=== PATIENT | female | born 1970 | race Caucasian/White ===

== ENCOUNTER 2019-01-28 15:10 | Observation (INO) ==
[~2019-01-28 15:10] MED LIST: Ondansetron 4 MG/2 ML VIAL IVP PRN
[2019-01-28] MEDS ORDERED: 0.9 % Sodium Chloride 1,000 ML IVC ONE (15:58)
[2019-01-28] MEDS ORDERED: Ondansetron 4 MG/2 ML VIAL IVP ONE (15:58)
[2019-01-28] MEDS ORDERED: Morphine Sulfate 2 MG/ML SYRINGE IVP ONE (15:58)
[2019-01-28 16:08] LABS: Bilirubin,Urine Negative (Negative); Blood,Urine Large (Negative); Clarity,Urine Clear (Clear); Color,Urine Yellow (Yellow); Glucose,Urine (UA) >=1000 mg/dL (Normal); Ketones,Urine 40 mg/dL (Negative); Leukocyte Esterase,Urine Negative (Negative); Nitrite,Urine Positive (Negative); Protein,Urine 30 mg/dL (Neg-Trace); Specific Gravity,Urine 1.025 (1.010-1.025); Urobilinogen,Urine Normal (Normal)
[2019-01-28 16:10] LABS: Bacteria,Urine Many per hpf (None-Few); Hyaline Casts,Urine None Seen per lpf (None-Few)
[2019-01-28 16:20] LABS: Squamous Epithelial Cell,Urine Few per lpf (None-Few)
[2019-01-28 16:21] LABS: RBC,Urine 15-30 per hpf (0-3)
[2019-01-28 16:45] LABS: Basophils % 0.3 %; Eosinophils % 0.1 %; Hematocrit 36.6 % (35.3-44.9); Hemoglobin 12.1 g/dL (11.5-15.4); Immature Granulocytes % 0.2 % (0-4); Mean Corpuscular HGB Conc 33.1 g/dL (31.6-35.5); Mean Corpuscular Hemoglobin 30.5 pg (28.0-33.3); Mean Corpuscular Volume 92.2 fL (83.0-100.0); Mean Platelet Volume 10.6 fL (9.4-12.4); Monocytes # 0.2 K/mcL (0.0-1.3); Monocytes % 2.4 %; Platelet Count 205 K/mcL (140-400); Red Blood Count 3.97 M/mcL (3.82-4.97); Red Cell Distribution Width 13.6 % (11.5-14.5); White Blood Count 9.3 K/mcL (4.3-11.1)
[2019-01-28 16:53] LABS: VBG HCO3 25 mEq/L (21-27); VBG PCO2 36 mmHg (41-51); VBG PH 7.46 pH Units (7.32-7.42); VBG PO2 134 mmHg (25-50)
[2019-01-28 17:08] LABS: Alanine Aminotransferase 85 Units/L (7-52); Albumin 4.4 g/dL (3.5-5.7); Albumin/Globulin Ratio 1.6 (1.1-2.2); Alkaline Phosphatase 99 Units/L (34-104); Aspartate Amino Transferase 50 Units/L (13-39); Bilirubin,Total 0.7 mg/dL (0.3-1.0); Blood Urea Nitrogen 25 mg/dL (6-20); Calcium 9.4 mg/dL (8.6-10.3); Carbon Dioxide 26 mEq/L (23-29); Chloride 101 mEq/L (98-107); Globulin 2.7 g/dL (2.4-3.5); Glucose 209 mg/dL (70-105); Lipase 7 Units/L (11-82); Osmolality,Calculated 299 (280-300); Potassium 3.6 mEq/L (3.5-5.1); Sodium 139 mEq/L (136-145); Total Protein 7.1 g/dL (6.4-8.9)
[2019-01-28 17:09] LABS: BUN/Creatinine Ratio 33 (6-26); eGFR For African Americans > 60 (> 60); eGFR For Non-African Americans > 60 (> 60)
[2019-01-28] MEDS ORDERED: cefTRIAXone 1,000 MG in 0.9 % Sodium Chloride Mini Bag 100 ML IVPB ONE (17:51)
--- NOTE | 2019-01-28 18:31 | Emergency Department Note ---
Disposition Clinical Impression: Renal colic on right side, Pyelonephritis Disposition: Admitted As Inpatient Condition: Fair Time of Disposition: 20:20 Abdominal Pain HPI - General Chief Complaint: ED Abdominal Pain Stated Complaint: ABD Pain,Nausea Time Seen by Provider: 01/28/19 15:43 Source: patient Nursing Notes Reviewed: Yes Vital Signs Reviewed: Yes - History of Present Illness HPI Narrative: This is a 48-year-old female presents with a complaint of right right flank pain for the past 2-3 days. Patient states the symptoms got worse today. Pain radiates to her groin. Associated symptoms nausea but no vomiting. She denies any fever or chills. She also describes urinary frequency, urgency and dysuria. Patient has history of insulin-dependent diabetes. Symptoms are worse with urination and palpation. Pt Subjective Complaint: flank pain Onset (ago): day(s) Consistency: constant Location: R flank Pain Scale: 5 Quality: stabbing, sharp Radiation: R flank Migration to: suprapubic Associated symptoms: Reports: nausea. Denies: vomiting, diarrhea - Related Data Home Medications Medication Instructions Recorded Confirmed Aripiprazole [Abilify] 15 mg PO DAILY 01/01/19 01/28/19 Ascorbic Acid [Vitamin C] 1,000 mg PO DAILY 01/01/19 01/28/19 Calcium Carbonate/Vitamin D3 1 cap PO DAILY 01/01/19 01/28/19 [Calcium 600+D Softgel] Oxybutynin [Ditropan] 5 mg PO BID 01/01/19 01/28/19 Rosuvastatin [Crestor] 40 mg PO HS 01/01/19 01/28/19 Subcutaneous Insulin Pump [T:Slim] 1 each MC AD 01/01/19 01/28/19 Venlafaxine HCl [Venlafaxine HCl 150 mg PO DAILY 01/01/19 01/28/19 ER] cloNIDine HCl [CloNIDine HCl] 0.1 mg PO HS 01/01/19 01/28/19 Allergies Allergy/AdvReac Type Severity Reaction Status Date / Time No Known Allergies Allergy Verified 01/01/19 07:51 All systems ED: reviewed and negative except as stated. Constitutional: Denies: fever, chills Cardiovascular: Denies: chest pain, palpitations, dyspnea on exertion Respiratory: Denies: cough, dyspnea Gastrointestinal: Reports: abdominal pain, nausea. Denies: vomiting Genitourinary: Reports: urgency, dysuria, frequency, hematuria Neurological: Denies: headache, weakness Abdominal Pain PMH - Past Medical History Medical history: Reports: cancer, diabetes, hyperlipidemia, thyroid disease, other Female Surgical History: Reports: breast surgery, cancer surgery, hysterectomy RADIOLOGY TECHNOLOGIST history: Reports: no RADIOLOGY TECHNOLOGIST history Psychiatric history: Reports: depression - Social History Smoking status: Unknown if ever smoked Alcohol use: Reports: occasionally Drug use: Reports: none Physical Exam - General Limitations: no limitations General appearance: alert, in no apparent distress - Head Head exam: atraumatic, normocephalic, normal inspection - Eye Eye exam: Present: normal appearance, PERRL, EOMI - Expanded Eye Exam Pupils: Left: reactive - ENT ENT exam: normal exam, normal oropharynx, mucous membranes moist - Expanded ENT Exam External ear exam: Present: normal external inspection Mouth exam: Present: normal external inspection Teeth exam: Present: normal inspection Throat exam: Present: normal inspection - Neck Neck exam: Present: normal inspection, full ROM, trachea midline - Chest Chest inspection: Present: normal inspection, symmetric chest wall rise - Respiratory Respiratory exam: Present: normal lung sounds bilaterally - Cardiovascular Cardiovascular exam: Present: regular rate, normal rhythm, normal heart sounds - Abdominal Exam Abdominal exam: Present: soft, other (There is right CVA tenderness.). Absent: tenderness, distention, guarding, rebound, rigidity, Lea's sign, Rovsing's sign, tenderness at McBurney's Point Abdominal tenderness: Present: suprapubic, moderate - Extremities Exam Extremities exam: Present: normal inspection, full ROM. Absent: tenderness, pedal edema - Expanded Upper Extremity Exam Vascular exam: Normal: capillary refill, radial pulse - Expanded Lower Extremity Exam Hip/Pelvis exam: Present: normal inspection Upper leg exam: Present: normal inspection Knee exam: Present: normal inspection Lower leg exam: Present: normal inspection Ankle exam: Present: normal inspection Foot/toe exam: Present: normal inspection Neurovascular/Tendon exam: Absent: motor deficit, sensory deficit, tendon deficit - Back Exam Back exam: Present: normal inspection, full ROM. Absent: tenderness - Neurological Exam Neurological exam: Present: alert, oriented X3 - Expanded Neurological Exam Patient oriented to: Present: person, place, time Coma Scale Eye Opening: Spontaneous Coma Scale Motor Response: Obeys Commands Coma Scale Verbal Response: Oriented Coma Scale Total: 15 - Psychiatric Psychiatric exam: Present: normal affect, normal mood - Skin Skin exam: Present: warm, dry, intact, normal color Course Vital Signs Temperature 99.1 F 01/28/19 15:28 Pulse Rate 54 01/28/19 15:28 Respiratory Rate 18 01/28/19 15:28 Blood Pressure 154/75 01/28/19 15:28 O2 Sat by Pulse Oximetry 99 01/28/19 15:28 Temperature 98.5 F 01/28/19 21:17 Pulse Rate 57 01/28/19 21:17 Respiratory Rate 15 01/28/19 21:17 Blood Pressure 156/84 01/28/19 21:17 O2 Sat by Pulse Oximetry 98 01/28/19 21:17 Oxygen Delivery Oxygen Delivery Room Air Abdominal Pain - MDM Narrative Medical decision making narrative: Differential diagnoses infiltrate clinically suspect pyelonephritis versus UTI versus DKA. Given this patient's history of insulin-dependent diabetes, I will check a blood gas to rule out DKA. There is no clinical suspicion for acute appendicitis with no tenderness or McBurney's, and with flank pain and urinary symptoms. 1716 Pt is doing well. feels better. 1812 Patient reverted. Patient feels much better. Labs and CT reviewed. Given her history of diabetes, I will consult urology for) the patient for infected stone. She has no fever or leukocytosis. 1921 Patient's could discuss with the urologist. He recommends admission to the hospitalist service. Patient's skin discussed with the hospitalist. Will admit. - Lab Data Result diagrams: 01/28/19 16:18 01/28/19 16:18 Lab Results 01/28/19 01/28/19 01/28/19 Range/Units 15:15 15:15 16:18 WBC 9.3 (4.3-11.1) K/mcL RBC 3.97 (3.82-4.97) M/mcL Hgb 12.1 (11.5-15.4) g/dL Hct 36.6 (35.3-44.9) % MCV 92.2 (83.0-100.0) fL MCH 30.5 (28.0-33.3) pg MCHC 33.1 (31.6-35.5) g/dL RDW 13.6 (11.5-14.5) % Plt Count 205 (140-400) K/mcL MPV 10.6 (9.4-12.4) fL Immature Gran % 0.2 (0-4) % Seg Neutrophils % 86.0 % Lymphocytes % 11.0 % Monocytes % 2.4 % Eosinophils % 0.1 % Basophils % 0.3 % Neutrophils # 8.0 (1.6-8.9) K/mcL Lymphocytes # 1.0 (0.6-4.6) K/mcL Monocytes # 0.2 (0.0-1.3) K/mcL Eosinophils # 0.0 (0.0-0.6) K/mcL Basophils # 0.0 (0.0-0.2) K/mcL VBG pH (7.32-7.42) pH Units VBG pCO2 (41-51) mmHg VBG pO2 (25-50) mmHg VBG HCO3 (21-27) mEq/L Sodium (136-145) mEq/L Potassium (3.5-5.1) mEq/L Chloride (98-107) mEq/L Carbon Dioxide (23-29) mEq/L BUN (6-20) mg/dL Creatinine (0.60-1.20) mg/dL Est GFR ( Amer) (> 60) Est GFR (Non-Af Amer) (> 60) BUN/Creatinine Ratio (6-26) Glucose (70-105) mg/dL Calculated Osmolality (280-300) Calcium (8.6-10.3) mg/dL Total Bilirubin (0.3-1.0) mg/dL AST (13-39) Units/L ALT (7-52) Units/L Alkaline Phosphatase (34-104) Units/L Serum Total Protein (6.4-8.9) g/dL Albumin (3.5-5.7) g/dL Globulin (2.4-3.5) g/dL Albumin/Globulin Ratio (1.1-2.2) Lipase (11-82) Units/L Urine Color Yellow (Yellow) Urine Clarity Clear (Clear) Urine pH 7.0 (5.0-8.0) pH Units Ur Specific [place] 1.025 (1.010-1.025) Urine Protein 30 H (Neg-Trace) mg/dL Urine Glucose (UA) >=1000 H (Normal) mg/dL Urine Ketones 40 H (Negative) mg/dL Urine Blood Large H (Negative) Urine Nitrite Positive A (Negative) Urine Bilirubin Negative (Negative) Urine Urobilinogen Normal (Normal) mg/dL Ur Leukocyte Esterase Negative (Negative) Urine Microscopic RBC 15-30 H (0-3) per hpf Urine Microscopic WBC 3-5 H (0-3) per hpf Ur Squamous Epith Cells Few (None-Few) per lpf Urine Bacteria Many H (None-Few) per hpf Hyaline Casts None Seen (None-Few) per lpf Ur Culture Indicated? YES A (NO) Urine Test Negative (Negative) 01/28/19 01/28/19 Range/Units 16:18 16:47 WBC (4.3-11.1) K/mcL RBC (3.82-4.97) M/mcL Hgb (11.5-15.4) g/dL Hct (35.3-44.9) % MCV (83.0-100.0) fL MCH (28.0-33.3) pg MCHC (31.6-35.5) g/dL RDW (11.5-14.5) % Plt Count (140-400) K/mcL MPV (9.4-12.4) fL Immature Gran % (0-4) % Seg Neutrophils % % Lymphocytes % % Monocytes % % Eosinophils % % Basophils % % Neutrophils # (1.6-8.9) K/mcL Lymphocytes # (0.6-4.6) K/mcL Monocytes # (0.0-1.3) K/mcL Eosinophils # (0.0-0.6) K/mcL Basophils # (0.0-0.2) K/mcL VBG pH 7.46 H (7.32-7.42) pH Units VBG pCO2 36 L (41-51) mmHg VBG pO2 134 H (25-50) mmHg VBG HCO3 25 (21-27) mEq/L Sodium 139 (136-145) mEq/L Potassium 3.6 (3.5-5.1) mEq/L Chloride 101 (98-107) mEq/L Carbon Dioxide 26 (23-29) mEq/L BUN 25 H (6-20) mg/dL Creatinine 0.75 (0.60-1.20) mg/dL Est GFR ( Amer) > 60 (> 60) Est GFR (Non-Af Amer) > 60 (> 60) BUN/Creatinine Ratio 33 H (6-26) Glucose 209 H (70-105) mg/dL Calculated Osmolality 299 (280-300) Calcium 9.4 (8.6-10.3) mg/dL Total Bilirubin 0.7 (0.3-1.0) mg/dL AST 50 H (13-39) Units/L ALT 85 H (7-52) Units/L Alkaline Phosphatase 99 (34-104) Units/L Serum Total Protein 7.1 (6.4-8.9) g/dL Albumin 4.4 (3.5-5.7) g/dL Globulin 2.7 (2.4-3.5) g/dL Albumin/Globulin Ratio 1.6 (1.1-2.2) Lipase 7 L (11-82) Units/L Urine Color (Yellow) Urine Clarity (Clear) Urine pH (5.0-8.0) pH Units Ur Specific [place] (1.010-1.025) Urine Protein (Neg-Trace) mg/dL Urine Glucose (UA) (Normal) mg/dL Urine Ketones (Negative) mg/dL Urine Blood (Negative) Urine Nitrite (Negative) Urine Bilirubin (Negative) Urine Urobilinogen (Normal) mg/dL Ur Leukocyte Esterase (Negative) Urine Microscopic RBC (0-3) per hpf Urine Microscopic WBC (0-3) per hpf Ur Squamous Epith Cells (None-Few) per lpf Urine Bacteria (None-Few) per hpf Hyaline Casts (None-Few) per lpf Ur Culture Indicated? (NO) Urine Test (Negative)
[2019-01-28] MEDS ORDERED: NON-FORMULARY MEDICATION 1 EACH EACH (Subcutaneous Insulin Pump [T:Slim] 1 EACH) MC SCH (21:00)
[2019-01-28] MEDS ORDERED: Dextrose Gel 15 GM/37.5 ML TUBE PO PRN ×2 (21:20)
[2019-01-28] MEDS ORDERED: *HR* Dextrose 50 % in Water (Syg) 50 ML SYRINGE IVP PRN (21:20)
[2019-01-28] MEDS ORDERED: Acetaminophen 325 MG TABLET PO PRN (21:49)
[2019-01-28] MEDS ORDERED: traMADol 50 MG TABLET PO PRN (21:49)
[2019-01-28] MEDS: Ringers Solution, Lactated 1,000 ML IVC SCH (22:12)
[2019-01-28] MEDS: Ketorolac 30 MG/ML VIAL IVP PRN (22:13)
[2019-01-28] MEDS: cloNIDine HCl 0.1 MG TABLET PO SCH (22:13)
--- NOTE | 2019-01-28 22:45 | Internal Med History&Physical ---
Date of Encounter: 01/28/19 Time of Encounter: 22:44 Internal Medicine - H&P: HPI Chief complaint: abdominal pain Admitted From: Home Plans for Post Hospital Care: Home History of present illness: Rachel Barlow is a 48-year-old woman with type 1 diabetes who presents to emergency room with a complaint of acute onset right flank and right lower quadrant pain that started this morning associated with nausea and vomiting but no fever or chills. She also describes 2-3 days of increased urinary frequency, urgency and dysuria. On arrival to the ER she was clinically and hemodynamically stable. Her lab work was relatively unremarkable and urinalysis showed large blood, nitrites and bacteria. ET scan was remarkable for 3 mm stone in the distal right ureter associated with mild right hydroureteronephrosis. Urology was contacted and she is admitted for further care. 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 About one month a go she underwent robotic-assisted umbilical hernia repair. Family history remarkable for breast and ovarian cancer in sister. She is status post prophylactic PADMINI/BSO. Vitals: Reviewed General: Well-appearing and well-developed white woman sitting up in bed in no acute distress. Skin: Warm and supple. HEENT: Moist mucous membranes. No conjunctivae pallor. Neck: No lymphadenopathy. No JVD. No carotid bruits. No palpable thyroid. Chest: Normal thoracic expansion. Normal breath sounds. Clear to auscultation. Heart: Normal S1 & S2; rhythmic. No rubs or murmurs. Abdomen: Non-distended, soft and tender right lower quadrant and right lumbar region with CVA tenderness. Extremities: No clubbing, cyanosis or edema. No calf tenderness. Normal distal pulses. Neurological: Awake, alert and oriented to person, place and time. No focal deficits. Psych: Affect appropriate. Assessment/Plan 1. Kidney stone: Although small in size it is causing obstruction and may require urologic invasive intervention to relieve the pressure on the tract. Consult has been placed. We will provide fluid resuscitation dose of tamsulosin tonight in addition to analgesics, anti-emetics as needed. Stop ascorbic acid and calcium carbonate daily supplementation. 2. Complicated UTI: She has now developed perinephric stranding on CT and has dysuric symptoms with pyuria presence of an obstructive stone. Cultures have been sent and we will keep her on ceftriaxone 1 g daily empirically for now. 3. Diabetes: Type I reported and uses an insulin pump. She refuses to discontinue the pump while hospitalized therefore we will monitor her with frequent Accu-Cheks. 4. Mood disorder: On aripiprazole and venlafaxine. 5. DVT prophylaxis: Anti-embolic stockings ordered. Past Med Surg Social Fam HX - Past Medical History Medical history: cancer, diabetes, hyperlipidemia, thyroid disease, other Additional medical history: breast cancer treated again after masectomy with chemo in 2008 Psychiatric history: depression - Past Surgical History Surgical History: other Additional surgical history: bialteral mastectomy, reconstructive surgery. GASTRIC SLEEVE. MASTECTOMY. HYSTERECTOMY - Social History Smoking Status: Unknown if ever smoked Smokeless Tobacco Status: No Alcohol use: occasionally Drug use: none - Family History Sister Living Status: Still Living Hx Family Cancer: Yes Mother Living Status: Hx Family Cancer: Yes Internal Medicine - H&P: Meds Aripiprazole [Abilify] 15 mg PO DAILY 01/01/19 [History] Ascorbic Acid [Vitamin C] 1,000 mg PO DAILY 01/01/19 [History] Calcium Carbonate/Vitamin D3 [Calcium 600+D Softgel] 1 cap PO DAILY 01/01/19 [History] Oxybutynin [Ditropan] 5 mg PO BID 01/01/19 [History] Rosuvastatin [Crestor] 40 mg PO HS 01/01/19 [History] Subcutaneous Insulin Pump [T:Slim] 1 each MC AD 01/01/19 [History] Venlafaxine HCl [Venlafaxine HCl ER] 150 mg PO DAILY 01/01/19 [History] cloNIDine HCl [CloNIDine HCl] 0.1 mg PO HS 01/01/19 [History] Allergy/AdvReac Type Severity Reaction Status Date / Time No Known Allergies Allergy Verified 01/01/19 07:51 All Systems PM: A 10-system review of systems was performed and is negative for pertinent findings except as documented above in the HPI. - Constitutional Vitals: Temp Pulse Resp BP Pulse Ox 98.5 F 57 15 156/84 98 01/28/19 21:17 01/28/19 21:17 01/28/19 21:17 01/28/19 21:17 01/28/19 21:17 Exam: . Internal Med - H&P Results - Labs CBC & Chem 7: 01/28/19 16:18 01/28/19 16:18 Labs: Short CBC 01/28/19 Range/Units 16:18 WBC 9.3 (4.3-11.1) K/mcL Hgb 12.1 (11.5-15.4) g/dL Hct 36.6 (35.3-44.9) % Plt Count 205 (140-400) K/mcL Neutrophils # 8.0 (1.6-8.9) K/mcL BMP 01/28/19 16:18 Sodium 139 Potassium 3.6 Chloride 101 Carbon Dioxide 26 BUN 25 H Creatinine 0.75 Glucose 209 H Calcium 9.4 Liver Function 01/28/19 Range/Units 16:18 Total Bilirubin 0.7 (0.3-1.0) mg/dL AST 50 H (13-39) Units/L ALT 85 H (7-52) Units/L Alkaline Phosphatase 99 (34-104) Units/L Albumin 4.4 (3.5-5.7) g/dL Urine 01/28/19 Range/Units 15:15 Urine Color Yellow (Yellow) Urine Clarity Clear (Clear) Urine pH 7.0 (5.0-8.0) pH Units Ur Specific [place] 1.025 (1.010-1.025) Urine Protein 30 H (Neg-Trace) mg/dL Urine Glucose (UA) >=1000 H (Normal) mg/dL - ABG Interpretation ABG results: 01/28/19 16:47 VBG pH 7.46 H VBG pCO2 36 L VBG pO2 134 H VBG HCO3 25 - Impressions ITS Impressions Abdomen/Pelvis CT 01/28/19 17:00 IMPRESSION: 3 mm stone in the distal right ureter. Mild right hydroureteronephrosis. D/ / Kathryn Qiu MD / Kathryn Qiu MD Interpreting Provider: Kathryn Qiu MD - Time Spent With Patient Total time spent is greater than 50% in coordination of care (as documented) at patient's floor/unit and/or counseling patient:
[2019-01-28] MEDS: Insulin LISPRO 300 UNITS/3 ML VIAL SQ SCH (23:47)
[2019-01-29] MEDS: Insulin LISPRO 300 UNITS/3 ML VIAL SQ SCH ×2 (05:04→13:10)
[2019-01-29] MEDS: Ringers Solution, Lactated 1,000 ML IVC SCH (06:05)
[2019-01-29] MEDS: Ketorolac 30 MG/ML VIAL IVP PRN ×3 (06:05→20:01)
[2019-01-29] MEDS: D5% in Lactated Ringers 1,000 ML IVC SCH ×2 (08:26→16:29)
--- NOTE | 2019-01-29 08:26 | Urology - Consult Note ---
Date of Encounter: 01/29/19 Time of Encounter: 08:05 - Assessment and Plan (1) Ureteral stone with hydronephrosis Current Visit: Yes Status: Acute Assessment and plan: Patient is a 40-year-old female who presents with a 3 mm right distal ureteral stone and hydronephrosis. Vital signs are currently stable and afebrile. We discussed surgical risks and benefits, and patient verbalized understanding. Patient signed consent, and she is prepared undergo a right ureteroscopic stone extraction with holmium laser lithotripsy, basket retrieval and right ureteral stent placement later today with Dr. Krause. Patient will remain nothing by mouth. (2) UTI (urinary tract infection) Current Visit: Yes Status: Acute Assessment and plan: Patient is a 48-year-old female who presents with a nitrite positive urinary tract infection. Vital signs have remained stable and afebrile. White blood cell count and renal function are reassuring. Patient is at higher risk for infection secondary to insulin-dependent diabetes mellitus. Urine culture has been collected, and patient has been placed on IV Rocephin. Qualifiers: Urinary tract infection type: site unspecified Hematuria presence: with hematuria Qualified Code(s): N39.0 - Urinary tract infection, site not specified; R31.9 - Hematuria, unspecified Urology CN:HPI Consult date: 01/29/19 Reason for consult Urology: Hydronephrosis (right ureteral stone) Requesting physician: Cyrus Trent History of present illness: Patient is a 48-year-old female who presents with a 3 mm right distal ureteral stone and mild right hydronephrosis. Patient reports a one day history of severe right flank pain radiating to the right lower quadrant as well as dysuria, nausea and vomiting. Patient presented to the emergency department where she underwent a CT of the abdomen and pelvis revealing a 3 mm distal right ureteral stone and hydronephrosis. She reports this is her first known renal stone. She admits to a positive family history of renal stones through her father. Currently, patient is sitting upright in bed in no apparent distress, and she denies any fever, chills, gross hematuria, urgency, frequency, hesitancy or incontinence. Past Med Surg Social Fam HX - Past Medical History Medical history: cancer, diabetes, hyperlipidemia, thyroid disease, other Additional medical history: breast cancer treated again after masectomy with chemo in 2008 Psychiatric history: depression - Past Surgical History Surgical History: other Additional surgical history: bialteral mastectomy, reconstructive surgery. GASTRIC SLEEVE. MASTECTOMY. HYSTERECTOMY - Social History Smoking Status: Unknown if ever smoked Smokeless Tobacco Status: No Alcohol use: occasionally Drug use: none - Family History Sister Living Status: Still Living Hx Family Cancer: Yes Mother Living Status: Hx Family Cancer: Yes Medications and Allergies Aripiprazole [Abilify] 15 mg PO DAILY 01/01/19 [History] Ascorbic Acid [Vitamin C] 1,000 mg PO DAILY 01/01/19 [History] Calcium Carbonate/Vitamin D3 [Calcium 600+D Softgel] 1 cap PO DAILY 01/01/19 [History] Oxybutynin [Ditropan] 5 mg PO BID 01/01/19 [History] Rosuvastatin [Crestor] 40 mg PO HS 01/01/19 [History] Subcutaneous Insulin Pump [T:Slim] 1 each MC AD 01/01/19 [History] Venlafaxine HCl [Venlafaxine HCl ER] 150 mg PO DAILY 01/01/19 [History] cloNIDine HCl [CloNIDine HCl] 0.1 mg PO HS 01/01/19 [History] Allergy/AdvReac Type Severity Reaction Status Date / Time No Known Allergies Allergy Verified 01/01/19 07:51 Review of Systems - Constitutional no chills, no fatigue, no fever(s) - EENT Nose, mouth and throat: no dizziness, no headache(s) - Cardiovascular no chest pain, no diaphoresis, no dyspnea - Respiratory no cough, no dyspnea - Gastrointestinal abdominal pain, nausea, vomiting - Genitourinary Genitourinary: dysuria, flank pain, no difficulty urinating, no hematuria, no urinary frequency, no urinary hesitancy, no urinary incontinence, no urinary urgency - Musculoskeletal back pain, no muscle weakness - Integumentary no erythema, no rash - Neurological no confusion, no syncope - Hematologic/Lymphatic no easy bleeding, no easy bruising - Allergic/Immunologic no throat swelling, no wheezing Exam Initial Vital Signs Temp Pulse Resp BP Pulse Ox 99.1 F 54 18 154/75 99 01/28/19 15:28 01/28/19 15:28 01/28/19 15:28 01/28/19 15:28 01/28/19 15:28 - General physical appearance Present: no distress, no pain - Eyes Present: PERRL, normal ocular movement - ENT Present: normal nares, no hearing loss, no congestion - Neck Present: no masses, trachea midline, no lymphadenopathy - Respiratory Present: normal respiratory effort - Cardiovascular Cardiovascular exam IM: RRR - Abdomen Abdomen: Present: soft, non tender. Absent: distended - Genitourinary Present: other (No CVAT) - Integumentary Present: no rash, no abnormal pigmentation - Neurologic Present: normal coordination - Musculoskeletal Present: other (Normal posture) Urology Results - Labs 01/28/19 16:18 01/28/19 16:18 Abnormal lab results VBG pH 7.46 pH Units (7.32-7.42) H 01/28/19 16:47 VBG pCO2 36 mmHg (41-51) L 01/28/19 16:47 VBG pO2 134 mmHg (25-50) H 01/28/19 16:47 BUN 25 mg/dL (6-20) H 01/28/19 16:18 BUN/Creatinine Ratio 33 (6-26) H 01/28/19 16:18 Glucose 209 mg/dL (70-105) H 01/28/19 16:18 POC Glucose 69 mg/dL (70-99) L 01/29/19 05:01 AST 50 Units/L (13-39) H 01/28/19 16:18 ALT 85 Units/L (7-52) H 01/28/19 16:18 Lipase 7 Units/L (11-82) L 01/28/19 16:18 Urine Protein 30 mg/dL (Neg-Trace) H 01/28/19 15:15 Urine Glucose (UA) >=1000 mg/dL (Normal) H 01/28/19 15:15 Urine Ketones 40 mg/dL (Negative) H 01/28/19 15:15 Urine Blood Large (Negative) H 01/28/19 15:15 Urine Nitrite Positive (Negative) A 01/28/19 15:15 Urine Microscopic RBC 15-30 per hpf (0-3) H 01/28/19 15:15 Urine Microscopic WBC 3-5 per hpf (0-3) H 01/28/19 15:15 Urine Bacteria Many per hpf (None-Few) H 01/28/19 15:15 Ur Culture Indicated? YES (NO) A 01/28/19 15:15 Diabetes panel 01/28/19 Range/Units 16:18 Sodium 139 (136-145) mEq/L Potassium 3.6 (3.5-5.1) mEq/L Chloride 101 (98-107) mEq/L Carbon Dioxide 26 (23-29) mEq/L BUN 25 H (6-20) mg/dL Creatinine 0.75 (0.60-1.20) mg/dL Glucose 209 H (70-105) mg/dL Calcium 9.4 (8.6-10.3) mg/dL AST 50 H (13-39) Units/L ALT 85 H (7-52) Units/L Alkaline Phosphatase 99 (34-104) Units/L Albumin 4.4 (3.5-5.7) g/dL Calcium panel 01/28/19 Range/Units 16:18 Calcium 9.4 (8.6-10.3) mg/dL Albumin 4.4 (3.5-5.7) g/dL Pituitary panel 01/28/19 Range/Units 16:18 Sodium 139 (136-145) mEq/L Potassium 3.6 (3.5-5.1) mEq/L Chloride 101 (98-107) mEq/L Carbon Dioxide 26 (23-29) mEq/L BUN 25 H (6-20) mg/dL Creatinine 0.75 (0.60-1.20) mg/dL Glucose 209 H (70-105) mg/dL Calcium 9.4 (8.6-10.3) mg/dL Adrenal panel 01/28/19 Range/Units 16:18 Sodium 139 (136-145) mEq/L Potassium 3.6 (3.5-5.1) mEq/L Chloride 101 (98-107) mEq/L Carbon Dioxide 26 (23-29) mEq/L BUN 25 H (6-20) mg/dL Creatinine 0.75 (0.60-1.20) mg/dL Glucose 209 H (70-105) mg/dL Calcium 9.4 (8.6-10.3) mg/dL Total Bilirubin 0.7 (0.3-1.0) mg/dL AST 50 H (13-39) Units/L ALT 85 H (7-52) Units/L Alkaline Phosphatase 99 (34-104) Units/L Albumin 4.4 (3.5-5.7) g/dL All other labs normal. - Imaging CT scan - abdomen: report reviewed, image reviewed CT scan - pelvis: report reviewed, image reviewed Consult Discharge Plan - Plan Referrals: Aisha Kebede CNP [Primary Care Provider] - Douglas Krause MD [Partnered Physician] -
[2019-01-29] MEDS ORDERED: Venlafaxine XR (24 HR) 150 MG CAP.ER.24H PO SCH (09:00)
[2019-01-29] MEDS ORDERED: cefTRIAXone 1,000 MG in Water for inj. (sterile) 10 ML IVPB SCH (09:00)
[2019-01-29] MEDS ORDERED: ARIPiprazole 5 MG TABLET PO SCH (09:00)
[2019-01-29 09:29] LABS: Basophils % 0.6 %; Eosinophils # 0.2 K/mcL (0.0-0.6); Eosinophils % 2.6 %; Hematocrit 34.2 % (35.3-44.9); Hemoglobin 11.2 g/dL (11.5-15.4); Immature Granulocytes % 0.1 % (0-4); Lymphocytes # 2.1 K/mcL (0.6-4.6); Lymphocytes % 30.1 %; Mean Corpuscular HGB Conc 32.7 g/dL (31.6-35.5); Mean Corpuscular Hemoglobin 29.8 pg (28.0-33.3); Mean Platelet Volume 10.1 fL (9.4-12.4); Monocytes # 0.6 K/mcL (0.0-1.3); Monocytes % 8.1 %; Platelet Count 200 K/mcL (140-400); Red Blood Count 3.76 M/mcL (3.82-4.97); Red Cell Distribution Width 13.7 % (11.5-14.5); Segmented Neutrophils % 58.5 %; White Blood Count 6.8 K/mcL (4.3-11.1)
[2019-01-29 09:39] LABS: INR 1.1; Prothrombin Time 12.5 Seconds (9.4-12.1)
[2019-01-29 09:48] LABS: BUN/Creatinine Ratio 23 (6-26); Blood Urea Nitrogen 22 mg/dL (6-20); Calcium 8.4 mg/dL (8.6-10.3); Carbon Dioxide 28 mEq/L (23-29); Chloride 106 mEq/L (98-107); Glucose 82 mg/dL (70-105); Osmolality,Calculated 294 (280-300); Potassium 3.4 mEq/L (3.5-5.1); Sodium 141 mEq/L (136-145); eGFR For African Americans > 60 (> 60); eGFR For Non-African Americans > 60 (> 60)
--- NOTE | 2019-01-29 09:54 | Internal Med Progress Note ---
<Nataliia Hancock - Last Filed: 01/29/19 14:56> Hospitalist Progress Note - Encounter Date of Encounter: 01/29/19 - Exam Vitals: Temp Pulse Resp BP Pulse Ox 98.0 F 73 18 134/78 95 01/29/19 11:01 01/29/19 11:01 01/29/19 11:01 01/29/19 11:01 01/29/19 11:01 - Time Spent with Patient Total time spent is greater than 50% in coordination of care (as documented) at patient's floor/unit and/or counseling patient: Internal Medicine: Result - Labs CBC & Chem 7: 01/29/19 09:14 01/29/19 09:14 Labs: Short CBC 01/28/19 01/29/19 Range/Units 16:18 09:14 WBC 9.3 6.8 (4.3-11.1) K/mcL Hgb 12.1 11.2 L (11.5-15.4) g/dL Hct 36.6 34.2 L (35.3-44.9) % Plt Count 205 200 (140-400) K/mcL Neutrophils # 8.0 4.0 (1.6-8.9) K/mcL BMP 01/28/19 01/29/19 16:18 09:14 Sodium 139 141 Potassium 3.6 3.4 L Chloride 101 106 Carbon Dioxide 26 28 BUN 25 H 22 H Creatinine 0.75 0.97 Glucose 209 H 82 Calcium 9.4 8.4 L Liver Function 01/28/19 Range/Units 16:18 Total Bilirubin 0.7 (0.3-1.0) mg/dL AST 50 H (13-39) Units/L ALT 85 H (7-52) Units/L Alkaline Phosphatase 99 (34-104) Units/L Albumin 4.4 (3.5-5.7) g/dL Urine 01/28/19 Range/Units 15:15 Urine Color Yellow (Yellow) Urine Clarity Clear (Clear) Urine pH 7.0 (5.0-8.0) pH Units Ur Specific [place] 1.025 (1.010-1.025) Urine Protein 30 H (Neg-Trace) mg/dL Urine Glucose (UA) >=1000 H (Normal) mg/dL - ABG Interpretation ABG results: PT/INR, D-dimer PT 12.5 Seconds (9.4-12.1) H 01/29/19 09:14 - Impressions Impressions Abdomen/Pelvis CT 01/28/19 17:00 IMPRESSION: 3 mm stone in the distal right ureter. Mild right hydroureteronephrosis. D/ / Kathryn Qiu MD / Kathryn Qiu MD Interpreting Provider: Kathryn Qiu MD Consult Discharge Plan - Plan Referrals: Aisha Kebede CNP [Primary Care Provider] - Douglas Krause MD [Partnered Physician] - - Attending Attestation I saw evaluated and examined this patient and reviewed objective data including labs and my medical decision-making was reviewed with the Resident Physician/Medical Student. I agree with the documented findings, disposition and treatment plan as described except to any changes set forth below. We independently had [id number] contact with the patient. <Renato Reid I - Last Filed: 01/29/19 15:27> Hospitalist Progress Note - Encounter Date of Encounter: 01/29/19 Time of Encounter: 08:30 - Subjective Interval History: Today patient is seen and examined . Currently, patient is sitting upright in bed in no apparent distress, and she denies any fever, chills, gross hematuria, urgency, frequency, hesitancy or incontinence - Exam Vitals: Temp Pulse Resp BP Pulse Ox 98.3 F 77 18 99/64 96 01/29/19 06:56 01/29/19 06:56 01/29/19 06:56 01/29/19 06:56 01/29/19 06:56 Exam: General: AAO X3 , No acute distress Skin: Warm and supple. HEENT: Moist mucous membranes. No conjunctivae pallor. Neck: No lymphadenopathy. No JVD. No carotid bruits. No palpable thyroid. Chest: Normal thoracic expansion. Normal breath sounds. Clear to auscultation. Heart: Normal S1 & S2; rhythmic. No rubs or murmurs. Abdomen: Non-distended, soft, No HSM Extremities: No clubbing, cyanosis or edema. No calf tenderness. Normal distal pulses. Neurological: Awake, alert and oriented to person, place and time. No focal deficits. Psych: Affect appropriate.. - Assessment and Plan (1) Ureteral stone with hydronephrosis Current Visit: Yes Status: Acute Assessment and Plan: -Patient reports a one day history of severe right flank pain radiating to the right lower quadrant as well as dysuria, nausea and vomiting -CT sacan of abdomen showed 3 mm right distal ureteral stone and hydronephrosis - will undergo a right ureteroscopic stone extraction with holmium laser lithotripsy, basket retrieval and right ureteral stent placement later today with Dr. Krause. - npo till after surgery (2) UTI (urinary tract infection) Current Visit: Yes Status: Acute Assessment and Plan: currently in no distress Vital signs have remained stable and afebrile. White blood cell count and renal function are reassuring. denies any fever, chills, gross hematuria, urgency, frequency, hesitancy or incontinence. blood and urine cultures are pending day 2 IV rocephin (3) Diabetes Current Visit: Yes Status: Acute Assessment and Plan: Type I reported and uses an insulin pump. She refuses to discontinue the pump while hospitalized current blood sugar 69 , she is npo . will switch IVF to D5 in RL - Time Spent with Patient Total time spent is greater than 50% in coordination of care (as documented) at patient's floor/unit and/or counseling patient: Internal Medicine: Result - Labs CBC & Chem 7: 01/29/19 09:14 01/29/19 09:14 Labs: Short CBC 01/28/19 01/29/19 Range/Units 16:18 09:14 WBC 9.3 6.8 (4.3-11.1) K/mcL Hgb 12.1 11.2 L (11.5-15.4) g/dL Hct 36.6 34.2 L (35.3-44.9) % Plt Count 205 200 (140-400) K/mcL Neutrophils # 8.0 4.0 (1.6-8.9) K/mcL BMP 01/28/19 01/29/19 16:18 09:14 Sodium 139 141 Potassium 3.6 3.4 L Chloride 101 106 Carbon Dioxide 26 28 BUN 25 H 22 H Creatinine 0.75 0.97 Glucose 209 H 82 Calcium 9.4 8.4 L Liver Function 01/28/19 Range/Units 16:18 Total Bilirubin 0.7 (0.3-1.0) mg/dL AST 50 H (13-39) Units/L ALT 85 H (7-52) Units/L Alkaline Phosphatase 99 (34-104) Units/L Albumin 4.4 (3.5-5.7) g/dL Urine 01/28/19 Range/Units 15:15 Urine Color Yellow (Yellow) Urine Clarity Clear (Clear) Urine pH 7.0 (5.0-8.0) pH Units Ur Specific [place] 1.025 (1.010-1.025) Urine Protein 30 H (Neg-Trace) mg/dL Urine Glucose (UA) >=1000 H (Normal) mg/dL - ABG Interpretation ABG results: PT/INR, D-dimer PT 12.5 Seconds (9.4-12.1) H 01/29/19 09:14 - Impressions Impressions Abdomen/Pelvis CT 01/28/19 17:00 IMPRESSION: 3 mm stone in the distal right ureter. Mild right hydroureteronephrosis. D/ / Kathryn Qiu MD / Kathryn Qiu MD Interpreting Provider: Kathryn Qiu MD ___ <Renato Reid I - Last Filed: 01/29/19 15:27> (2) UTI (urinary tract infection) Qualifiers: Urinary tract infection type: site unspecified Hematuria presence: with hematuria Qualified Code(s): N39.0 - Urinary tract infection, site not specified; R31.9 - Hematuria, unspecified
[2019-01-29] MEDS ORDERED: PATIENT TAKING SQ PRN (13:50)
[2019-01-29] MEDS: cloNIDine HCl 0.1 MG TABLET PO SCH (20:13)
[2019-01-29] MEDS ORDERED: *HR* Propofol 200 MG/20 ML VIAL IVP ONE (21:10)
[2019-01-29] MEDS ORDERED: *HR* Midazolam HCl 2 MG/2 ML VIAL ONE (21:10)
[2019-01-29] MEDS ORDERED: *HR* FentaNYL (PF) 100 MCG/2 ML VIAL ONE (21:10)
--- NOTE | 2019-01-29 22:01 | Anesthesia Evaluation PreOp ---
Date of Encounter: 01/29/19 Time of Encounter: 22:00 - Past History Planned Operation: Rt USE Cardiac History: Hyperlipidemia Pulmonary History: Denies Any Significant HX WEB OPERATIONS MANAGER History: Denies Any Significant HX Other Medical History: Diabetes Type I, Thyroid Anesthesia History: No Prior Anesthetic Complications : No Test: Negative Alcohol Use: occasionally Drug use: none Medications and Allergies Aripiprazole [Abilify] 15 mg PO DAILY 01/01/19 [History] Ascorbic Acid [Vitamin C] 1,000 mg PO DAILY 01/01/19 [History] Calcium Carbonate/Vitamin D3 [Calcium 600+D Softgel] 1 cap PO DAILY 01/01/19 [History] Oxybutynin [Ditropan] 5 mg PO BID 01/01/19 [History] Rosuvastatin [Crestor] 40 mg PO HS 01/01/19 [History] Subcutaneous Insulin Pump [T:Slim] 1 each MC AD 01/01/19 [History] Venlafaxine HCl [Venlafaxine HCl ER] 150 mg PO DAILY 01/01/19 [History] cloNIDine HCl [CloNIDine HCl] 0.1 mg PO HS 01/01/19 [History] Allergy/AdvReac Type Severity Reaction Status Date / Time No Known Allergies Allergy Verified 01/01/19 07:51 - Meds/Allergy Pre-op Review Medications Reviewed: Yes Allergies Reviewed: Yes Beta Blockers on Current Med List: No Anesthesia Results - Labs 01/29/19 09:14 01/29/19 09:14 Laboratory Tests 01/29/19 01/29/19 09:14 09:14 Hgb 11.2 L Hct 34.2 L Plt Count 200 Sodium 141 Potassium 3.4 L BUN 22 H Creatinine 0.97 Anesthesia Exam O2 Sat O2 Sat by Pulse Oximetry 98 O2 Sat by Pulse Oximetry 97 O2 Sat by Pulse Oximetry 95 O2 Sat by Pulse Oximetry 96 O2 Sat by Pulse Oximetry 93 O2 Sat by Pulse Oximetry 94 Vital Signs Temp Pulse Resp BP Pulse Ox 99.1 F 54 18 154/75 99 01/28/19 15:28 01/28/19 15:28 01/28/19 15:28 01/28/19 15:28 01/28/19 15:28 Height: 5'4 Weight: 157 lbs NPO (# of Hours): MN Pain Scale: 0 - HEENT Pupil (Motor): Pupils equal, EOMI Mallampati: III Teeth: Normal Oral Opening: Less than or equal to 3 - WEB OPERATIONS MANAGER LOC: Oriented WEB OPERATIONS MANAGER Motor: Normal RUE, Normal LUE, Normal RLE, Normal LLE, Normal Face WEB OPERATIONS MANAGER Sensory: Normal: RUE, LUE, RLE, LLE, Face - Cardiac Rhythm: Regular Murmur: None JVD: No Carotid Bruit: No - Pulmonary Breath Sounds: bilateral Clear Respiratory Effort: Symmetrical Anesthesia Assess/Plan ASA Score: 2 Level of consciousness: Cooperative, Oriented Anesthetic Plan: General Autologous Blood: No Monitoring Plan: Standard Monitors Recovery Plan: PACU (Discussed GA, agrees to proceed)
[2019-01-29] MEDS ORDERED: Ondansetron 4 MG/2 ML VIAL IVP ONE (22:02)
[2019-01-29] MEDS ORDERED: *HR* OxyCODONE Immed Rel 5 MG TABLET PO PRN (22:02)
[2019-01-29] MEDS ORDERED: Ondansetron 4 MG/2 ML VIAL ONE (22:10)
[2019-01-29] MEDS ORDERED: Lidocaine -MPF 2% 2 ML VIAL ONE (22:10)
--- NOTE | 2019-01-29 23:10 | Operative Note ---
Date of procedure: 01/29/19 Pre-op diagnosis: Right ureteral stone Post-op diagnosis: same Procedure: Right ureteroscopy, laser lithotripsy, basket stone extraction, and stent placement Implants: 6-[place] by 24 cm double-J stent Complications: None Anesthesia: CRESCENCIO Surgeon: Douglas Krause Was there an legal support assistant present: No Estimated blood loss (cc): 1 Specimen: right ureteral stone Condition: stable Disposition: PACU Procedure in Detail: Indications: Rachel is a 48-year-old female who presents with right flank pain. A CT scan showed a distal right ureteral stone. She is admitted for pain control and elected to have the stone removed. She elected to undergo a right ureteroscopy, laser lithotripsy, and stent placement. She was aware of the risks of the procedure including but not limited to bleeding, infection, injury to other structures, need for further procedures, need for stent, stent irritation, incomplete treatment, and the risk of anesthesia. She is willing to proceed. She has a history of diabetes mellitus. Her urine culture was positive for gram-negative rods, but she has been on ceftriaxone. She understands the abdomen risk of infection associated with the procedure. Procedure: After informed consent was obtained the patient was brought back to the operating room and placed in supine position. A time out was performed. General anesthesia was administered and an LMA was placed. She was then placed in the lithotomy position. She was prepped and draped in the usual sterile fashion. Cystoscopy was performed. The anterior urethra was normal. There was no evidence of bladder tumors. The ureteral orifices were in the normal orthotopic position. There was no duplication of the ureteral orifices. The zip wire was placed in the right ureteral orifice, and it was brought into the kidney under fluoroscopic guidance. The ureter was gently dilated with the 8/10-[place] ureteral dilator. I then advanced the semirigid ureteroscope into the ureter. The stone was fragmented using the 365 micron fiber. The stone fragments were then basket extracted. A 6 [place] by 24cm JJ stent was then placed with good curl seen in the kidney and the bladder. The dangle string was removed. Her bladder was drained. The patient was then awakened from general anesthesia and brought to recovery room in good condition. All sponge, needle, and instrument counts were correct
[2019-01-29] MEDS ORDERED: Acetaminophen 325 MG TABLET PO PRN (23:53)
[2019-01-29] MEDS ORDERED: *HR* Dextrose 50 % in Water (Syg) 50 ML SYRINGE IVP PRN (23:53)
[2019-01-29] MEDS ORDERED: Patient Taking Own Medication 1 EACH SQ PRN (23:53)
[2019-01-29] MEDS ORDERED: Ondansetron 4 MG/2 ML VIAL IVP PRN (23:53)
[2019-01-29] MEDS ORDERED: Dextrose Gel 15 GM/37.5 ML TUBE PO PRN ×2 (23:53)
[2019-01-29] MEDS ORDERED: D5% in Lactated Ringers 1,000 ML IVC SCH (23:53)
[2019-01-29] MEDS ORDERED: traMADol 50 MG TABLET PO PRN (23:53)
[2019-01-29] MEDS ORDERED: Ketorolac 30 MG/ML VIAL IVP PRN (23:53)
--- NOTE | 2019-01-30 01:51 | Anesthesia Evaluation Post Op ---
Date of Encounter: 01/30/19 Time of Encounter: 00:00 - Vital Signs Vital Signs: Vital Signs/O2 Sat/Glucose, Most Current Temp Pulse Resp BP Pulse Ox 01/30/19 01:03 98.3 F 88 14 116/75 98 01/30/19 00:34 98.1 F 85 18 129/74 96 01/29/19 23:57 97.6 F 75 16 126/82 97 01/29/19 23:45 99.5 F 66 10 116/75 96 01/29/19 23:35 67 10 110/67 93 01/29/19 23:25 87 12 123/60 95 01/29/19 23:15 98.3 F 103 14 123/73 96 - Lungs Lungs: Clear Ascult./Percussion - Airway Airway: Non-obstructed - Cardiovascular Regular Rate - Mental Status Mental Status: Alert & Oriented, Answers Appropriately - Pain Pain Scale: 0 - Nausea Vomiting Nausea Vomiting: Not Present - Hydration Hydration: Ice chips - Discharge PostOp Status: Transfer Patient to floor
[2019-01-30] MEDS ORDERED: ARIPiprazole 5 MG TABLET PO SCH (09:00)
[2019-01-30] MEDS ORDERED: Venlafaxine XR (24 HR) 150 MG CAP.ER.24H PO SCH (09:00)
[2019-01-30] MEDS ORDERED: cefTRIAXone 1,000 MG in Water for inj. (sterile) 10 ML IVPB SCH (09:00)
--- NOTE | 2019-01-30 09:01 | Urology Progress Note ---
Date of Encounter: 01/30/19 Time of Encounter: 08:10 - Assessment and Plan (1) Ureteral stone with hydronephrosis Current Visit: Yes Status: Acute Assessment and plan: Patient is a 48-year-old female who presents one day status post right ureteroscopy, laser lithotripsy, basket stone extraction, and stent placement. Vital signs remained stable and afebrile. Patient is recovering very well postoperatively. We discussed postoperative expectations with indwelling ureteral stent. Patient will require an outpatient follow-up with Dr. Krause within 1 week for a cystoscopy and stent removal in the office. (2) UTI (urinary tract infection) Current Visit: Yes Status: Acute Assessment and plan: Patient is a 48-year-old female who presents with pansensitive Escherichia coli urinary tract infection. Patient has received IV Rocephin, and she is much improved. Urology recommendations an additional 10-14 days of oral culture sensitive antibiotics such as Omnicef. Patient is eligible for discharge from a urologic standpoint. Qualifiers: Urinary tract infection type: site unspecified Hematuria presence: with hematuria Qualified Code(s): N39.0 - Urinary tract infection, site not specified; R31.9 - Hematuria, unspecified Progress Note Subjective: no new complaints, feels better Narrative: POD #1. Patient seen and examined sitting upright in bed in no apparent distres s. Patient is tolerating normal diet without nausea or vomiting. Patient is voiding well without difficulty. She denies any fever, chills or flank pain. Objective Initial Vital Signs Temp Pulse Resp BP Pulse Ox 99.1 F 54 18 154/75 99 01/28/19 15:28 01/28/19 15:28 01/28/19 15:28 01/28/19 15:28 01/28/19 15:28 - General physical appearance Present: no distress, no pain - Respiratory Present: normal expansion, normal respiratory effort - Abdomen Present: soft, non tender. Absent: distended - Integumentary Present: no rash, no abnormal pigmentation - Musculoskeletal Present: normal posture - Psychiatric Present: oriented to time, oriented to person, oriented to place, speech is normal, memory intact - Labs 01/29/19 09:14 01/29/19 09:14 Diabetes panel 01/29/19 Range/Units 09:14 Sodium 141 (136-145) mEq/L Potassium 3.4 L (3.5-5.1) mEq/L Chloride 106 (98-107) mEq/L Carbon Dioxide 28 (23-29) mEq/L BUN 22 H (6-20) mg/dL Creatinine 0.97 (0.60-1.20) mg/dL Glucose 82 (70-105) mg/dL Calcium 8.4 L (8.6-10.3) mg/dL Calcium panel 01/29/19 Range/Units 09:14 Calcium 8.4 L (8.6-10.3) mg/dL Pituitary panel 01/29/19 Range/Units 09:14 Sodium 141 (136-145) mEq/L Potassium 3.4 L (3.5-5.1) mEq/L Chloride 106 (98-107) mEq/L Carbon Dioxide 28 (23-29) mEq/L BUN 22 H (6-20) mg/dL Creatinine 0.97 (0.60-1.20) mg/dL Glucose 82 (70-105) mg/dL Calcium 8.4 L (8.6-10.3) mg/dL Adrenal panel 01/29/19 Range/Units 09:14 Sodium 141 (136-145) mEq/L Potassium 3.4 L (3.5-5.1) mEq/L Chloride 106 (98-107) mEq/L Carbon Dioxide 28 (23-29) mEq/L BUN 22 H (6-20) mg/dL Creatinine 0.97 (0.60-1.20) mg/dL Glucose 82 (70-105) mg/dL Calcium 8.4 L (8.6-10.3) mg/dL Consult Discharge Plan - Plan Referrals: Aisha Kebede CNP [Primary Care Provider] - Douglas Krause MD [Partnered Physician] -
--- NOTE | 2019-01-30 09:12 | Internal Med Progress Note ---
Hospitalist Progress Note - Encounter Date of Encounter: 01/30/19 - Exam Vitals: Temp Pulse Resp BP Pulse Ox 98.8 F 87 15 136/83 95 01/30/19 06:31 01/30/19 06:31 01/30/19 06:31 01/30/19 06:31 01/30/19 08:00 - Assessment and Plan (1) Ureteral stone with hydronephrosis Current Visit: Yes Status: Acute (2) UTI (urinary tract infection) Current Visit: Yes Status: Acute (3) Diabetes Current Visit: Yes Status: Acute - Time Spent with Patient Total time spent is greater than 50% in coordination of care (as documented) at patient's floor/unit and/or counseling patient: Internal Medicine: Result - Labs CBC & Chem 7: 01/29/19 09:14 01/29/19 09:14 Labs: Short CBC 01/29/19 Range/Units 09:14 WBC 6.8 (4.3-11.1) K/mcL Hgb 11.2 L (11.5-15.4) g/dL Hct 34.2 L (35.3-44.9) % Plt Count 200 (140-400) K/mcL Neutrophils # 4.0 (1.6-8.9) K/mcL BMP 01/29/19 09:14 Sodium 141 Potassium 3.4 L Chloride 106 Carbon Dioxide 28 BUN 22 H Creatinine 0.97 Glucose 82 Calcium 8.4 L - ABG Interpretation ABG results: PT/INR, D-dimer PT 12.5 Seconds (9.4-12.1) H 01/29/19 09:14 - Impressions Impressions Fluoroscopy 01/30/19 01:12 IMPRESSION: Please see operative report for further details. D/ / Lupillo Ocampo MD / Lupillo Ocampo MD Interpreting Provider: Lupillo Ocampo MD X-Ray 01/30/19 01:12 IMPRESSION: Please see operative report for further details. D/ / Lupillo Ocampo MD / Lupillo Ocampo MD Interpreting Provider: Lupillo Ocampo MD Consult Discharge Plan - Plan Referrals: Aisha Kebede CNP [Primary Care Provider] - Douglas Krause MD [Partnered Physician] - ____ (2) UTI (urinary tract infection) Qualifiers: Urinary tract infection type: site unspecified Hematuria presence: with hematuria Qualified Code(s): N39.0 - Urinary tract infection, site not specified; R31.9 - Hematuria, unspecified
[2019-01-30 10:32] VITALS: BP 124/75
--- NOTE | 2019-01-30 13:26 | Discharge Summary ---
<Renato Reid I - Last Filed: 01/30/19 13:21> - NOTES TO OUTPATIENT PROVIDER Notes to Outpatient Provider: Patient presented with severe right flank pain radiating to the right lower quadrant as well as dysuria, nausea and vomiting. CT of the abdomen and pelvis revealing a 3 mm distal right ureteral stone and hydronephrosis. She underwent a right ureteroscopic stone extraction with holmium laser lithotripsy . Orders not resulted at time of discharge: Pending orders 01/28/19 20:41 Blood Culture [Culture,Blood] [BC] Stat 01/29/19 23:15 Calculi (stone) Analysis Routine 01/29/19 23:25 Surgical Pathology [PTH] Routine Date of Encounter: 01/30/19 Time of Encounter: 09:10 - Discharge Diagnosis (1) Ureteral stone with hydronephrosis Priority: Primary Status: Acute (2) UTI (urinary tract infection) Priority: Secondary Status: Acute Qualifiers: Urinary tract infection type: site unspecified Hematuria presence: with hematuria Qualified Code(s): N39.0 - Urinary tract infection, site not specified; R31.9 - Hematuria, unspecified (3) Diabetes Priority: Secondary Status: Acute Qualifiers: Qualified Code(s): E11.9 - Type 2 diabetes mellitus without complications; Z79.4 - long term care social worker (current) use of insulin Hospital course: Ms. Barlow is a 48 year old female ho presents with a 3 mm right distal ureteral stone and mild right hydronephrosis. Patient reports a one day history of severe right flank pain radiating to the right lower quadrant as well as dysuria, nausea and vomiting. Patient presented to the emergency department where she underwent a CT of the abdomen and pelvis revealing a 3 mm distal right ureteral stone and hydronephrosis. She reports this is her first known renal stone. She admits to a positive family history of renal stones through her father. She underwent a right ureteroscopic stone extraction with holmium laser lithotripsy, basket retrieval and right ureteral stent placement later today with Dr. Krause . Also patient UA was positive for UTI , urine culture positive for E coli . she has been treated with 3 days IV Rocephin and plan to continue with oral omnicef for total 10 day course of antibiotics . Currently Vital signs are stable and afebrile , patient is sitting upright in bed in no apparent distress, and she denies any fever, chills, gross hematuria, urgency, frequency, hesitancy or incontinence. - Time Spent with Patient Total time spent providing and/or coordinating discharge services: - Discharge Medications Prescriptions: New Cefdinir [Omnicef] 300 mg PO BID 7 Days #14 capsule Continued Rosuvastatin [Crestor] 40 mg PO HS Calcium Carbonate/Vitamin D3 [Calcium 600+D Softgel] 1 cap PO DAILY Subcutaneous Insulin Pump [T:Slim] 1 each MC AD Ascorbic Acid [Vitamin C] 1,000 mg PO DAILY Venlafaxine HCl [Venlafaxine HCl ER] 150 mg PO DAILY cloNIDine HCl [CloNIDine HCl] 0.1 mg PO HS Aripiprazole [Abilify] 15 mg PO DAILY Oxybutynin [Ditropan] 5 mg PO BID Home Medications: Aripiprazole [Abilify] 15 mg PO DAILY 01/01/19 [History] Ascorbic Acid [Vitamin C] 1,000 mg PO DAILY 01/01/19 [History] Calcium Carbonate/Vitamin D3 [Calcium 600+D Softgel] 1 cap PO DAILY 01/01/19 [History] Oxybutynin [Ditropan] 5 mg PO BID 01/01/19 [History] Rosuvastatin [Crestor] 40 mg PO HS 01/01/19 [History] Subcutaneous Insulin Pump [T:Slim] 1 each MC AD 01/01/19 [History] Venlafaxine HCl [Venlafaxine HCl ER] 150 mg PO DAILY 01/01/19 [History] cloNIDine HCl [CloNIDine HCl] 0.1 mg PO HS 01/01/19 [History] Cefdinir [Omnicef] 300 mg PO BID 7 Days #14 capsule 01/30/19 [Rx] Allergies/Adverse Reactions: Allergy/AdvReac Type Severity Reaction Status Date / Time No Known Allergies Allergy Verified 01/01/19 07:51 Date of admission: 01/28/19 20:38 Primary care physician: Aisha Kebede CNP Consults: 01/28/19 16:30 PICC Consult [Consult to Invasive Line Access Team] [CONS] Stat Reason for Consult: needs IV Line Type: Midline 01/28/19 20:55 Consult to Urology [CONS] Routine Consulting Provider: Urology Marya Reason for Consult: OBSTRUCTIVE STONE WITH HYDROURETERONEPHROSIS Call Completed: Yes - Constitutional Vitals: Temp Pulse Resp BP Pulse Ox 98.4 F 72 15 124/75 96 01/30/19 10:31 01/30/19 10:31 01/30/19 10:31 01/30/19 10:31 01/30/19 10:31 Exam: General: AAO X3 , No acute distress Skin: Warm and supple. HEENT: Moist mucous membranes. No conjunctivae pallor. Neck: No lymphadenopathy. No JVD. No carotid bruits. No palpable thyroid. Chest: Normal thoracic expansion. Normal breath sounds. Clear to auscultation. Heart: Normal S1 & S2; rhythmic. No rubs or murmurs. Abdomen: Non-distended, soft, No HSM Extremities: No clubbing, cyanosis or edema. No calf tenderness. Normal distal pulses. Neurological: Awake, alert and oriented to person, place and time. No focal deficits. Psych: Affect appropriate.. - Patient Status Disposition: Home, Self-Care Condition: Good Functional capacity at discharge: independent ambulation Overall status at discharge: patient is back to baseline - Discharge Instructions Follow Up With: Aisha Kebede CNP [Primary Care Provider] - Douglas Krause MD [Partnered Physician] - - Diet and Activity Activity: increase activity as tolerated Diet: diabetic diet <Alvaro Parker - Last Filed: 01/30/19 14:14> Orders not resulted at time of discharge: Pending orders 01/28/19 20:41 Blood Culture [Culture,Blood] [BC] Stat 01/29/19 23:15 Calculi (stone) Analysis Routine 01/29/19 23:25 Surgical Pathology [PTH] Routine Date of Encounter: 01/30/19 Time of Encounter: 14:13 Hospital course: Ms. Barlow is a 48 year old female - Time Spent with Patient Total time spent providing and/or coordinating discharge services: Date of admission: 01/28/19 20:38 Primary care physician: Aisha Kebede CNP Consults: 01/28/19 16:30 PICC Consult [Consult to Invasive Line Access Team] [CONS] Stat Reason for Consult: needs IV Line Type: Midline 01/28/19 20:55 Consult to Urology [CONS] Routine Consulting Provider: Urology Marya Reason for Consult: OBSTRUCTIVE STONE WITH HYDROURETERONEPHROSIS Call Completed: Yes - Constitutional Vitals: Temp Pulse Resp BP Pulse Ox 98.4 F 72 15 124/75 96 01/30/19 10:31 01/30/19 10:31 01/30/19 10:31 01/30/19 10:31 01/30/19 10:31 - Attending Attestation I saw evaluated and examined this patient and reviewed objective data including labs and my medical decision-making was reviewed with the Resident Physician. I agree with the documented findings, disposition and discharge plan as described except to any changes set forth below. We independently had [id number] contact with the patient. Patient with history of type 1 diabetes mellitus was hospitalized here with the 3 mL right distal ureteral stone and hydronephrosis. She was treated with antibiotics and IV fluids and was evaluated by urology. She underwent right ureteroscopy with laser lithotripsy, stone extraction and stent placement on 01/29. She has been doing well since then. She is clinically stable to be discharged home at this time from a urologic standpoint and she will follow up with urology as outpatient for stent removal. Her urine culture was positive for Escherichia coli and patient will complete 7 day antibiotic course for this. Time spent on discharge: 5 min
[2019-01-30] MEDS ORDERED: cloNIDine HCl 0.1 MG TABLET PO SCH (21:00)
[2019-02-02 12:01] LABS: Calculi Mass 15 mg
== END 2019-01-30 14:49 | disposition home or self-care (01) ==
LOC: EMEROOARM 15:10 → 3ANU 15:10 → SUATTDRO 20:38 → 3ANU 20:54
PROVIDERS: ADMIT Internal Medicine; ATTEND Internal Medicine